=== PATIENT | female | born 1980 ===

== ENCOUNTER 2020-04-15 16:41 | Emergency (ER) | payer BC, MEDICAID ==
[2020-04-15] MEDS ORDERED: Erythromycin Base 0.5% Ophth Oint 1 GM Tube EYELF ONE (17:11)
--- NOTE | 2020-04-15 17:15 | EDM.PDOC ---
ED HPI GENERAL MEDICAL PROBLEM - General Chief Complaint: Eye Problems Stated Complaint: LEFT EYE SWELLING Time Seen by Provider: 04/15/20 17:00 Source of Information: Reports: Patient - History of Present Illness INITIAL COMMENTS - FREE TEXT/NARRATIVE: HISTORY AND PHYSICAL: History of present illness: Patient is a 40-year-old female who presents to the emergency room with complaints of left upper eyelid redness, swelling and slight drainage from the eye itself. She states she has had "clogged tear ducts before" and has been gentle massage and gentle heat, although feels that this is not improving her symptoms. She denies any fever, chills, pain with ocular movement, change in vision or headache. Not wear contact lenses or glasses. No foreign body in the eye. Review of systems: As per history of present illness and below otherwise all systems reviewed and negative. Past medical history: As per history of present illness and as reviewed below otherwise noncontributory. Surgical history: As per history of present illness and as reviewed below otherwise noncontributory. Social history: See social history for further information Family history: As per history of present illness and as reviewed below otherwise noncontributory. Physical exam: General: Well-developed and well-nourished 40-year-old female. Alert and oriented. Nontoxic-appearing and in no acute distress. HEENT: Atraumatic, normocephalic, pupils equal and reactive bilaterally, negative for conjunctival pallor or scleral icterus, mild redness and swelling of the upper lid with some crusty drainage along the upper lash line, no pain with ocular movement. No ocular impingement. Mucous membranes moist, TMs normal bilaterally, throat clear, neck supple, nontender, trachea midline. No drooling or trismus noted. No meningeal signs. No hot potato voice noted. Lungs: Clear to auscultation, breath sounds equal bilaterally, chest nontender. Heart: S1S2, regular rate and rhythm without overt murmur Abdomen: Soft, nondistended, nontender. Skin: Intact, warm, dry. No lesions or rashes noted. Extremities: Atraumatic, moves all extremities per self without difficulty or deficits, negative for cords or calf pain. Neurovascular unremarkable. Neuro: Awake, alert, oriented. Cranial nerves II through XII unremarkable. Cerebellum unremarkable. Motor and sensory unremarkable throughout. Exam nonfocal. Notes: Patient's blood pressure is elevated upon evaluation. She states that she has been out of her medications for 2 to 3 months and has yet to follow-up with a primary care provider to have this medication refilled. Patient denies any fever, chills, headache, change in vision, syncope or near syncope. Denies any chest pain, back pain, shortness of breath or cough. I did offer to give her some medication to help lower her blood pressure here along with performing some basic lab work/EKG. She declines stating that she would prefer to have this medication refilled and she will follow-up with her primary care provider for reevaluation and further medication management. Symptoms consistent with blepharitis. We discussed signs and symptoms that would prompt her to return to the emergency room. Follow-up, medication and supportive care measures were reviewed and discussed. Voices understanding and is agreeable to plan of care. Denies any further questions or concerns at this time. Diagnostics: None Therapeutics: Erythromycin Prescription: Lisinopril/HCTZ, erythromycin Impression: Medication noncompliance Blepharitis, left Plan: 1. Wash the upper eyelid with tear free baby shampoo twice daily and apply gentle warm compresses to the lid 2-3 times daily. 2. Use the erythromycin ointment 4 times a day for the next 7 to 10 days and then apply every night until completely resolved. 3. Follow-up with ophthalmology if your symptoms should not resolve, symptoms worsen or new symptoms develop. 4. Return to the emergency room as needed and as discussed. Definitive disposition and diagnosis as appropriate pending reevaluation and review of above. - Related Data Allergies Allergy/AdvReac Type Severity Reaction Status Date / Time No Known Allergies Allergy Verified 04/15/20 17:01 Home Meds: Home Meds Erythromycin Base [Erythromycin 0.5% Ophth Oint] 1 applic OP QID 7 Days #1 tube 04/15/20 [Rx] Hydrochlorothiazide/Lisinopril [Lisinopril-HCTZ 20-12.5 MG] 1 tab PO DAILY 04/15/20 [History] Lisinopril/Hydrochlorothiazide [Lisinopril-Hctz 20-25 mg Tab] 1 each PO DAILY 30 Days #30 tablet 04/15/20 [Rx] Past Medical History Cardiovascular History: Reports: Hypertension - Infectious Disease History Infectious Disease History: Reports: Chicken Pox Social & Family History - Family History Family Medical History: Noncontributory - Tobacco Use Smoking Status *Q: Never Smoker - Recreational Drug Use Recreational Drug Use: No ED ROS GENERAL - Review of Systems Review Of Systems: Comprehensive ROS is negative, except as noted in HPI. ED EXAM GENERAL W FULL EYE - Physical Exam Exam: See Below (See dictation) Course - Vital Signs Last Recorded V/S: Last Vital Signs Temp 97.5 F 04/15/20 16:56 Pulse 91 04/15/20 16:56 Resp 16 04/15/20 16:56 BP 206/117 H 04/15/20 17:08 Pulse Ox 98 04/15/20 16:56 - Orders/Labs/Meds Meds: Medications Discontinued Medications Generic Name Dose Route Start Last Admin Trade Name Gilma PRN Reason Stop Dose Admin Erythromycin 1 gm 04/15/20 17:11 Erythromycin 0.5% Ophth Oint EYELF 04/15/20 17:12 ONETIME ONE Departure - Departure Time of Disposition: 17:14 Disposition: Home, Self-Care 01 Clinical Impression: Noncompliance with medication regimen Blepharitis of eyelid of left eye Qualifiers: Blepharitis type: unspecified type Eyelid: upper Qualified Code(s): H01.004 - Unspecified blepharitis left upper eyelid - Discharge Information Prescriptions: Erythromycin Base [Erythromycin 0.5% Ophth Oint] 1 applic OP QID 7 Days #1 tube Lisinopril/Hydrochlorothiazide [Lisinopril-Hctz 20-25 mg Tab] 1 each PO DAILY 30 Days #30 tablet Instructions: Blepharitis, [id number] Referrals: PCP,None [Primary Care Provider] - Forms: ED Department Discharge Additional Instructions: The following information is given to patients seen in the emergency department who are being discharged to home. This information is to outline your options for follow-up care. We provide all patients seen in our emergency department with a follow-up referral. The need for follow-up, as well as the timing and circumstances, are variable depending upon the specifics of your emergency department visit. If you don't have a primary care physician on staff, we will provide you with a referral. We always advise you to contact your personal physician following an emergency department visit to inform them of the circumstance of the visit and for follow-up with them and/or the need for any referrals to a consulting specialist. The emergency department will also refer you to a specialist when appropriate. This referral assures that you have the opportunity for follow-up care with a specialist. All of these measure are taken in an effort to provide you with optimal care, which includes your follow-up. Under all circumstances we always encourage you to contact your private physician who remains a resource for coordinating your care. When calling for follow-up care, please make the office aware that this follow-up is from your recent emergency room visit. If for any reason you are refused follow-up, please contact the [facility] at and asked to speak to the emergency department charge nurse. [facility] [address] [place] [id number] [place] [address] 1. Wash the upper eyelid with tear free baby shampoo twice daily and apply gentle warm compresses to the lid 2-3 times daily. 2. Use the erythromycin ointment 4 times a day for the next 7 to 10 days and then apply every night until completely resolved. 3. Follow-up with ophthalmology if your symptoms should not resolve, symptoms worsen or new symptoms develop. 4. Return to the emergency room as needed and as discussed. Sepsis Event Note (ED) - Evaluation Sepsis Screening Result: No Definite Risk - Focused Exam Vital Signs: Vital Signs Temp Pulse Resp BP Pulse Ox 04/15/20 17:08 206/117 H 04/15/20 16:56 97.5 F 91 16 248/139 H 98
== END 2020-04-15 17:29 | disposition home or self-care (01) ==
LOC: MW.ED 16:41
DX: H01.004 Unspecified blepharitis left upper eyelid (principal); I10 Essential (primary) hypertension; Z91.14 Patient's other noncompliance with medication regimen; Z79.899 Other long term (current) drug therapy
CPT/HCPCS: 99282; A9270